=== PATIENT | female | born 1985 | race Caucasian/White ===

== ENCOUNTER 2016-11-11 14:47 | Inpatient (IN) | payer MEDICAID ==
[~2016-11-11] VITALS: Ht 167.6 cm; Wt 96.8 kg
[2016-12-03] VITALS (53 sets, daily range): BP systolic 84–148; BP diastolic 44–71; PULSE 52–86; TEMP 97.9–98.7
[2016-12-03] MEDS ORDERED: PRENATAL1 TA7 PO (08:09)
[2016-12-03 08:19] LABS: BASO # 0.1 (0.0-0.2); BASO % 0.4 % (0.0-2.0); EOS # 0.1 (0.0-0.7); EOS % 1.2 % (0-4.0); GRAN # 8.7 (1.4-6.5); GRAN % 73.2 % (42.2-75.2); HEMOGLOBIN 12.5 g/dl (12.5-16.0); LYMPH # 2.2 (1.2-3.4); LYMPH % 18.8 % (20.0-51.0); MEAN CELL VOLUME 87 fl (80.0-100.0); MEAN CORPUSCULAR HEMOGLOBIN 30 pg (27.0-31.0); MEAN CORPUSCULAR HGB CONC 35 g/dl (33.0-37.0); MEAN PLATELET VOLUME 10.6 fl (7.4-10.4); MONO # 0.7 (0.1-0.6); PLATELET COUNT 212 K/mm3 (130-400); RED BLOOD COUNT 4.15 M/mm3 (4.10-5.30); WHITE BLOOD COUNT 11.9 K/mm3 (4.8-10.8)
[2016-12-03 08:33] LABS: HEMATOCRIT 36.1 % (37.0-47.0)
[2016-12-03] MEDS ORDERED: MOTRIN 800800 MG/TAB PO (09:09)
[2016-12-03] MEDS ORDERED: PERCOCET 325 MG1 TA2 PO (09:09)
[2016-12-04 01:35] VITALS: BP 109/50; PULSE 80; TEMP 98.3
[2016-12-04 09:45] VITALS: BP 100/68; PULSE 82; TEMP 98.2
[2016-12-04 19:30] VITALS: BP 113/65; PULSE 63; TEMP 97.3
== END 2016-12-04 20:10 | disposition home or self-care (01) | DRG 775 ==
LOC: LDR 12-03 07:07 → OB 12-03 21:50 → EDSTATUS 12-06 07:09 → LDRO 12-06 14:47
PROVIDERS: Obstetrics & Gynecology
PROC: 10E0XZZ Delivery of Products of Conception, External Approach (ICD-10-PCS; principal; 2016-12-03)
PROC: 3E033VJ Introduction of Other Hormone into Peripheral Vein, Percutaneous Approach (ICD-10-PCS; 2016-12-03)
DX: O36.0130 Maternal care for anti-D [Rh] antibodies, third trimester, not applicable or unspecified (principal); Z3A.39 39 weeks gestation of pregnancy; Z37.0 Single live birth
CPT/HCPCS: J2590; J7120

== ENCOUNTER 2017-06-28 13:18 | Emergency (ER) | payer OTHER ==
[~2017-06-28] VITALS: Ht 167.6 cm; Wt 77.3 kg
[~2017-06-28 13:18] MED LIST: MOTRIN 800800 MG/TAB PO; PERCOCET 325 MG1 TA2 PO; PRENATAL1 TA7 PO
[2017-06-28 13:24] VITALS: BP 118/75; PULSE 85; TEMP 98.6
== END 2017-06-28 15:54 | disposition home or self-care (01) ==
LOC: COL.ER 13:18
DX: S43.401A Unspecified sprain of right shoulder joint, initial encounter (principal); V89.2XXA Person injured in unspecified motor-vehicle accident, traffic, initial encounter

== ENCOUNTER 2021-01-09 06:23 | Inpatient (IN) | payer BC, MEDICAID ==
[2021-01-09] VITALS (44 sets, daily range): BP systolic 83–141; BP diastolic 45–74; PULSE 55–88; TEMP 97.4–98.8
[~2021-01-09] VITALS: Ht 165.1 cm; Wt 101.4 kg
[2021-01-09 07:13] LABS: BASO % 0.3 % (0.0-2.0); EOS # 0.2 (0.0-0.7); EOS % 1.2 % (0-4.0); GRAN % 72.2 % (42.2-75.2); HEMOGLOBIN 11.9 g/dl (12.5-16.0); LYMPH # 2.4 (1.2-3.4); LYMPH % 19.3 % (20.0-51.0); MEAN CELL VOLUME 89 fl (80.0-100.0); MEAN CORPUSCULAR HEMOGLOBIN 30 pg (27.0-31.0); MEAN CORPUSCULAR HGB CONC 33 g/dl (33.0-37.0); MEAN PLATELET VOLUME 10.6 fl (7.4-10.4); MONO # 0.8 (0.1-0.6); MONO % 6.2 % (1.7-9.3); PLATELET COUNT 205 K/mm3 (130-400); RED BLOOD COUNT 3.98 M/mm3 (4.10-5.30); REDCELL DISTRIBUTION WIDTH-CV 13.3 % (11.5-14.5)
[2021-01-09 07:22] LABS: HEMATOCRIT 35.6 % (37.0-47.0)
[2021-01-09] MEDS ORDERED: PNV-DHA1 SGL PO (07:25)
[2021-01-09] MEDS ORDERED: LEXAPRO20 MG PO (07:25)
--- NOTE | 2021-01-09 08:10 | NUR ---
Variable deceleration noted while patient in left lateral. LR bolus begun. Repositioned to right lateral. Will continue to monitor.
--- NOTE | 2021-01-09 09:05 | NUR ---
0905: DONNY Claire, here for epidural placement per patient request. 0912: Local anesthetic administered by PUBLIC SPEAKING INSTRUCTOR. 0914: Epidural space obtained by PUBLIC SPEAKING INSTRUCTOR. 0915: Single shot dose administered by PUBLIC SPEAKING INSTRUCTOR. Patient tolerates procedure well, no adverse reactions noted. Repositioned to low arcos's wedged right following procedure.
--- NOTE | 2021-01-09 09:55 | NUR ---
Positioned in right lateral with peanut ball.
--- NOTE | 2021-01-09 10:00 | NUR ---
Note patient hypotensive, and symptomatic, complaint of lightheadedness, nausea. LR bolus in progress. 10 mg Ephedrine IVP administered @ 1005. D.DONNY Elam, aware.
--- NOTE | 2021-01-09 10:10 | NUR ---
Repeat dose Ephedrine 10 mg IVP administered by this selling underwriter @ this time, as noted, patient remains symptomatic with lightheadedness, nausea, still hypotensive. LR bolus still in progress.
--- NOTE | 2021-01-09 10:30 | NUR ---
Positioned in korin position following SVE.
--- NOTE | 2021-01-09 10:45 | NUR ---
in room. Updated to SVE @ 7231 3/high. Aware of rate of pitocin, patient comfortable with epidural block. Discussed recent position changes, and in process of repositioning toco to trace contraction pattern, but informed previously picking up contractions every 2 minutes. No new orders received @ this time.
--- NOTE | 2021-01-09 11:15 | NUR ---
Positioned in right lateral with peanut ball.
--- NOTE | 2021-01-09 11:35 | NUR ---
Positioned left lateral with peanut ball.
--- NOTE | 2021-01-09 12:10 | NUR ---
Positioned to right lateral with peanut ball.
--- NOTE | 2021-01-09 13:20 | NUR ---
Positioned left lateral with peanut ball.
--- NOTE | 2021-01-09 13:30 | NUR ---
Prolonged decel noted while patient in left lateral position. Repositioned to right lateral, LR bolus begun. Pit on standby. notified. See provider notification.
--- NOTE | 2021-01-09 14:13 | NUR ---
Repositioned semi-arcos with right tilt. Note patient nauseated per statement. Overhead fan on, cool washcloth to forehead provided.
--- NOTE | 2021-01-09 14:40 | NUR ---
Exaggerated left lateral with right leg in stirrup.
--- NOTE | 2021-01-09 15:08 | NUR ---
Positioned in exaggerated right lateral with left leg in stirrup.
--- NOTE | 2021-01-09 15:37 | NUR ---
Patient repositioned in hands knees for recovery until 's arrival.
--- NOTE | 2021-01-09 15:49 | NUR ---
1549: here, repeat SVE C/+3. Room set up for delivery. Nursery nurse present. 1551: First push attempt. 1552: Spontaneous vaginal delivery of female infant over intact perineum by . Infant dried and stimulated on mother's abdomen. Umbilical cord doubly clamped by , as she instructs patient partner on cutting cord. 1554: Spontaneous delivery of placenta by . Pit bolus begun immediately following. Fundus firm with massage. Luis BURRELL.
--- NOTE | 2021-01-09 15:50 | NUR ---
Baez catheter removed by this news writer.
--- NOTE | 2021-01-09 16:00 | NUR ---
Epidural pump turned off @ this time by this typewriter assembly and parts inspector. Jeffry Elam CRNA, aware.
[2021-01-09] MEDS ORDERED: MOTRIN 800800 MG/TAB PO (17:02)
--- NOTE | 2021-01-09 18:00 | NUR ---
Note patient right leg still heavy post epidural. Fundus firm, 2 above U. Patient able to spontaneously void in bedpan. Mayra care provided following. Note, moderate sized clot passed with void. Fundus firm @ U following void.
--- NOTE | 2021-01-09 20:00 | NUR ---
2000 UP TO BR WITH ASSIST AND VOIDED 400CC EASILY. PERICARE DONE. AMB TO 207 AND KARLEE WELL.
[2021-01-10 07:35] VITALS: BP 108/53; PULSE 81; TEMP 98.2
[2021-01-10 11:45] VITALS: BP 105/50; PULSE 80; TEMP 98.2
--- NOTE | 2021-01-10 12:59 | NUR ---
stopped by but nothing needed at this time.
[2021-01-10 17:55] VITALS: BP 105/61; PULSE 75; TEMP 97.9
--- NOTE | 2021-01-10 18:30 | NUR ---
Report recieved. Finished feeding infant a bottle. Updated whiteboard. Discharge educational videos watched; denies questions or concerns. POC reviewed.
[2021-01-10 19:20] VITALS: BP 100/60; PULSE 59; TEMP 98
[2021-01-11 08:59] VITALS: BP 107/62; PULSE 66; TEMP 98.4
== END 2021-01-11 10:35 | disposition home or self-care (01) | DRG 807 ==
LOC: OB 06:23 → LDR 06:23 → OB 09:44
PROVIDERS: ADMIT Obstetrics & Gynecology
PROC: 10E0XZZ Delivery of Products of Conception, External Approach (ICD-10-PCS; principal; 2021-01-09)
PROC: 10907ZC Drainage of Amniotic Fluid, Therapeutic from Products of Conception, Via Natural or Artificial Opening (ICD-10-PCS; 2021-01-09)
PROC: 3E033VJ Introduction of Other Hormone into Peripheral Vein, Percutaneous Approach (ICD-10-PCS; 2021-01-09)
DX: O99.214 Obesity complicating childbirth (principal); Z37.0 Single live birth; E66.9 Obesity, unspecified; O99.344 Other mental disorders complicating childbirth; O26.893 Other specified pregnancy related conditions, third trimester; F32.9 Major depressive disorder, single episode, unspecified; Z3A.39 39 weeks gestation of pregnancy; Z67.41 Type O blood, Rh negative
CPT/HCPCS: J2405; J2590; J2795; J7120